=== PATIENT | male | born 1980 | race Two or more races ===

== ENCOUNTER 2021-07-04 01:09 | Inpatient (IN) | payer MEDICAID ==
[~2021-07-04] VITALS: Ht 172.7 cm; Wt 148.3 kg
--- NOTE | 2021-07-04 04:51 | NUR ---
PATIENT ARRIVED ON THE FLOOR FROM [facility]. PATIENT IS AWAKE, A/O X4. NO S/S OF DISTRESS NOTED. NO COMPLAIN OF PAIN. HOB ELEVATED. ON O2 AT 6L NASAL CANNULA O2 SAT 94%. CALL LIGHT WITHIN REACH. BED ALARM ON. BED IN LOWEST AND LOCKED POSITION. AT THE BEDSIDE.URINAL AT THE BEDSIDE.
[2021-07-04 05:30] VITALS: BP 121/74
--- NOTE | 2021-07-04 05:55 | NUR ---
CALLED [facility] FOR DR MARTINEZ FOR ADMISSION ORDERS.
--- NOTE | 2021-07-04 06:50 | NUR ---
DR MARTINEZ CALLED BACK AND INFORMED HIM OF DIRECT ADMIT PATIENT FROM [facility], AND FOR ADMISSION ORDERS. ACCORDING TO HIM DAY TEAM WILL ORDER IT.
[2021-07-04 07:12] VITALS: BP 121/74
[2021-07-04] MEDS ORDERED: ONDANSETRON HCL/PF 4 MG/2 ML VIAL IVP PRN (07:30)
[2021-07-04] MEDS ORDERED: MAG HYDROX/AL HYDROX/SIMETH 30 ML UDC PO PRN (07:30)
[2021-07-04] MEDS ORDERED: ZOLPIDEM TARTRATE 5 MG TABLET PO PRN (07:30)
[2021-07-04] MEDS ORDERED: MAGNESIUM HYDROXIDE 30 ML UDC PO PRN (07:30)
--- NOTE | 2021-07-04 07:30 | NUR ---
RN OPENING NOTES RECEIVED PATIENT IN BED, ASLEEP, EASILY AROUSED. A/O X4, VERBALLY RESPONSIVE. NO SIGNS OF ACUTE DISTRESS NOTED. ON O2 @ 6LPM VIA N/C, SATURATION @92%, NO SOB NOTED, BREATHING EVEN AND UNLABORED. ON MOBILE LOUNGE DRIVER SHOWING NORMAL SINUS RHYTHM, HR @74. NOTED WITH IV ACCESS ON LEFT FOREARM #20G, INTACT AND PATENT, SALINE LOCKED. SAFETY MEASURES IN PLACE. PLACED BED IN LOWEST AND LOCKED POSITION, SR UP X2, CALL LIGHT PLACED WITHIN EASY REACH. WILL CONTINUE TO MONITOR.
[2021-07-04] MEDS: AZITHROMYCIN 250 MG TABLET PO SCH (07:55)
[2021-07-04] MEDS: CEFTRIAXONE 1 G in IV D5W 50 ML IV SCH (07:57)
[2021-07-04 08:00] VITALS: BP 118/69
[2021-07-04 08:19] LABS: BASOPHILS % (AUTO) 0.4 % (0.0-2.0); EOSINOPHILS % (AUTO) 0.4 % (0.0-6.0); HEMATOCRIT 58 % (39-51); HEMOGLOBIN 16.5 g/dL (13.5-17.5); LYMPHOCYTES # (AUTO) 0.9 K/uL (0.8-4.8); LYMPHOCYTES % (AUTO) 9.4 % (20.0-44.0); MEAN CORPUSCULAR HGB CONC 29 g/dl (31.0-36.0); MEAN CORPUSCULAR VOLUME 78 fL (80-96); MONOCYTES # (AUTO) 0.9 K/uL (0.1-1.30); MONOCYTES % (AUTO) 10.4 % (2.0-12.0); NEUTROPHILS # (AUTO) 7.2 K/uL (1.8-8.9); NEUTROPHILS % (AUTO) 79.4 % (43.0-81.0); PLATELET COUNT (AUTO) 131 K/uL (150-450); RED BLOOD CELL COUNT(AUTO) 7.39 MIL/uL (4.5-6.0); WHITE BLOOD COUNT (AUTO) 9.1 K/uL (4.3-11.0)
[2021-07-04 08:38] LABS: CALCIUM, SERUM 8.4 mg/dL (8.5-10.1); CREATININE 1.1 mg/dL (0.6-1.3); MAGNESIUM 2.6 mg/dL (1.8-2.4); PHOSPHORUS 6.3 mg/dL (2.5-4.9); POTASSIUM 5.1 mmol/L (3.5-5.1)
[2021-07-04] MEDS ORDERED: Z GUARD REMEDY 4 OZ OINT TP PRN (09:00)
[2021-07-04] MEDS: ACETAMINOPHEN 325 MG TABLET PO PRN (10:30)
[2021-07-04 12:00] VITALS: BP 115/71
[2021-07-04] MEDS: FUROSEMIDE 40 MG/4 ML VIAL IV SCH (15:08)
[2021-07-04 16:00] VITALS: BP 110/71
--- NOTE | 2021-07-04 18:48 | NUR ---
RN CLOSING NOTES PATIENT IN BED, AWAKE. GIRLFRIEND AT BEDSIDE. A/O X4, VERBALLY RESPONSIVE. NO SIGNS OF ACUTE DISTRESS NOTED. REMAINS ON O2 @ 6LPM VIA N/C, SATURATION @93%, NO SOB NOTED, BREATHING EVEN AND UNLABORED. ON TELE MONITOR SHOWING NORMAL SINUS RHYTHM, HR @80. NOTED WITH IV ACCESS ON LEFT FOREARM #20G, INTACT AND PATENT, SALINE LOCKED. SAFETY MEASURES IN PLACE. PLACED BED IN LOWEST AND LOCKED POSITION, SR UP X2, CALL LIGHT PLACED WITHIN EASY REACH. WILL ENDORSE TO NEXT SHIFT FOR VARSHA.
[2021-07-04 20:00] VITALS: BP 101/65
--- NOTE | 2021-07-04 20:00 | NUR ---
DATA COORDINATOR OPENING NOTES RECEIVED PATIENT STANDING UP, GIRLFRIEND AT BEDSIDE. A/O X4. NO SOB OR NOTED AT THIS TIME. ON O2 @ 6 LPM VIA NC. ON TELE MONITOR SHOWING SINUS RHYTHM 80. NO C/O PAIN OR DISCOMFORT. HAS LEFT FOREARM IV ACCESS #20G AND SALINE LOCKED. SAFETY MEASURES IN PLACE. WILL CONTINUE PLAN OF CARE.
[2021-07-05] VITALS: BP 113/59
[2021-07-05] MEDS: ACETAMINOPHEN 325 MG TABLET PO PRN (00:46)
--- NOTE | 2021-07-05 00:46 | NUR ---
FIRE DEPARTMENT MARINE ENGINEER NOTES PATIENT C/O HEADACHE. PRN TYLENOL ADMINISTERED.
[2021-07-05 04:19] VITALS: BP 115/66
--- NOTE | 2021-07-05 06:15 | NUR ---
CAFETERIA ASSOCIATE CLOSING NOTES PATIENT LYING IN BED ASLEEP, HOB ELEVATED @ 45 DEGREES. EASY TO AROUSE. A/O X4. BREATHING EVEN AND UNLABORED. ON O2 @ 6 LPM VIA NC, SPO2 97%. NO C/O PAIN AT THIS TIME. SKIN WARM AND DRY. ABDOMEN SOFT AND NON-TENDER. ON TELE MONITOR READING SINUS RHYTHM AT 76 BPM. HAS LEFT FOREARM IV ACCESS #20G AND SALINE LOCKED. INTACT, PATENT AND FLUSHING. RIGHT LOWER LEG NON-PITTING EDEMA AND REDNESS NOTED. ALL NEEDS ATTENDED. KEPT DRY AND COMFORTABLE. SAFETY PRECAUTIONS IN PLACE: BED LOW AND LOCKED, SIDE RAILS UP X2, CALL LIGHT WITHIN REACH.
[2021-07-05 06:47] LABS: CHOLESTEROL 114 mg/dL (<200); HDL CHOLESTEROL 22 mg/dL (40-60); LDL 75 mg/dL (0-99); TRIGLYCERIDES 121 mg/dL (30-150)
[2021-07-05 06:52] LABS: ALANINE AMINOTRANSFERASE < 6 U/L (12-78); ALBUMIN 2.7 g/dL (3.4-5.0); ALKALINE PHOSPHATASE 86 U/L (46-116); ASPARTATE AMINOTRANSFERASE 11 U/L (15-37); BILIRUBIN,TOTAL 0.5 mg/dL (0.2-1.0); CALCIUM, SERUM 8.7 mg/dL (8.5-10.1); CHLORIDE 101 mmol/L (98-107); CREATININE 0.9 mg/dL (0.6-1.3); GLUCOSE 201 mg/dL (74-106); MAGNESIUM 2.4 mg/dL (1.8-2.4); PHOSPHORUS 4.8 mg/dL (2.5-4.9); POTASSIUM 5.1 mmol/L (3.5-5.1); SODIUM SERUM 140 mmol/L (136-145); TOTAL PROTEIN, SERUM 7.7 g/dL (6.4-8.2); UREA NITROGEN, BLOOD 16 mg/dL (7-18)
[2021-07-05 06:57] LABS: CARBON DIOXIDE 41 mmol/L (21-32)
[2021-07-05] MEDS: AZITHROMYCIN 250 MG TABLET PO SCH (07:24)
--- NOTE | 2021-07-05 07:30 | NUR ---
DAY CARE TEACHER OPENING NOTES RECEIVED PATIENT on bed awake. A/O X4. ABLE TO MAKE NEEDS KNOWN. NO SOB OR NOTED AT THIS TIME. ON O2 @ 6 LPM VIA NC. O2 SAT NOTED 97%. ON TELE MONITOR SHOWING SINUS RHYTHM . NO C/O PAIN OR DISCOMFORT NOTED. LEFT FOREARM IV ACCESS #20G AND SALINE LOCKED. SAFETY MEASURES IN PLACE. BED LOCKED IN THE LOWEST POSITION. CALL LIGHT AND TABLE IN REACH. WILL CONTINUE TO MONITOR.
[2021-07-05 07:39] LABS: BASOPHILS # (AUTO) 0.1 K/uL (0.0-0.2); BASOPHILS % (AUTO) 0.9 % (0.0-2.0); EOSINOPHILS % (AUTO) 1.4 % (0.0-6.0); HEMATOCRIT 57 % (39-51); HEMOGLOBIN 16.1 g/dL (13.5-17.5); LYMPHOCYTES # (AUTO) 0.9 K/uL (0.8-4.8); LYMPHOCYTES % (AUTO) 13.5 % (20.0-44.0); MEAN CORPUSCULAR HGB CONC 28 g/dl (31.0-36.0); MEAN CORPUSCULAR VOLUME 79 fL (80-96); MONOCYTES # (AUTO) 0.5 K/uL (0.1-1.30); MONOCYTES % (AUTO) 7.5 % (2.0-12.0); NEUTROPHILS # (AUTO) 5.2 K/uL (1.8-8.9); NEUTROPHILS % (AUTO) 76.7 % (43.0-81.0); PLATELET COUNT (AUTO) 118 K/uL (150-450); RED BLOOD CELL COUNT(AUTO) 7.23 MIL/uL (4.5-6.0); WHITE BLOOD COUNT (AUTO) 6.7 K/uL (4.3-11.0)
[2021-07-05] MEDS: CEFTRIAXONE 1 G in IV D5W 50 ML IV SCH (08:05)
[2021-07-05] MEDS: FUROSEMIDE 40 MG/4 ML VIAL IV SCH ×2 (08:49→16:17)
[2021-07-05] MEDS ORDERED: FURO-144 PO (12:03)
[2021-07-05] MEDS ORDERED: METO25TA3 PO (12:03)
[2021-07-05] MEDS ORDERED: ASPI-1420 PO (12:03)
[2021-07-05 14:07] LABS: ABG BASE EXCESS 11.6 mmol/L; ABG OXYGEN SATURATION 92.4 % (92.0-98.5); ABG PCO2 84.2 mmHg (35.0-45.0); ABG PH 7.322 (7.350-7.450); ABG PO2 64.4 mmHg (75.0-100.0); COHb 1.8 % (0.5-1.5); MetHb 0.5 % (0.0-1.5); O2Hb 90.3 % (94.0-97.0); SITE, ABG Right Radial; VENT MODE, BG 6LPM NC
--- NOTE | 2021-07-05 18:40 | NUR ---
GLOVE PAIRER CLOSING NOTES PATIENT ON BIPAB AWAKE. A/O X4. ABLE TO MAKE NEEDS KNOWN. NO SOB AT THIS TIME. O2 SAT NOTED 97%. ON TELE MONITOR SHOWING SINUS RHYTHM . NO C/O PAIN OR DISCOMFORT NOTED. LEFT FOREARM IV ACCESS #20G AND SALINE LOCKED. ALL DUE MEDS GIVEN ORDERED. SISTERS AT HER BED SIDE.SAFETY MEASURES IN PLACE. BED LOCKED IN THE LOWEST POSITION. CALL LIGHT AND TABLE IN REACH. WILL ENDORSE FOR VARSHA..
--- NOTE | 2021-07-05 19:15 | NUR ---
RT NOTE ABG DRAWN. RAN, AND VALUES GIVEN TO RN. WILL CONTINUE TO MONITOR T/OS SHIFT.
[2021-07-05 19:26] LABS: ABG BASE EXCESS 10.2 mmol/L; ABG OXYGEN SATURATION 95.6 % (92.0-98.5); ABG PCO2 69.6 mmHg (35.0-45.0); ABG PO2 76.6 mmHg (75.0-100.0); AaDO2 128.6 mmHg; COHb 1.9 % (0.5-1.5); MetHb 0.5 % (0.0-1.5); O2Hb 93.3 % (94.0-97.0); SITE, ABG Right Radial; VENT MODE, BG BIPAP 20/5 R20 40%
--- NOTE | 2021-07-05 19:41 | NUR ---
RESOURCE DEVELOPMENT DIRECTOR OPENING NOTES PATIENT ON BIPAB AWAKE. A/O X4. ABLE TO MAKE NEEDS KNOWN. NO SOB AT THIS TIME. O2 SAT NOTED 97%. ON TELE MONITOR SHOWING SINUS RHYTHM . NO C/O PAIN OR DISCOMFORT NOTED. LEFT FOREARM IV ACCESS #20G AND SALINE LOCKED. SISTERS AT HIS BED SIDE.SAFETY MEASURES IN PLACE. BED LOCKED IN THE LOWEST POSITION. CALL LIGHT AND TABLE IN REACH.
--- NOTE | 2021-07-05 19:46 | NUR ---
SUPERVISOR INDUSTRIAL GARMENT NOTES CRITICAL BLOOD GAS LEVELS REPORTED TO DR GUTIERREZ PER DR PANCHAL CONTINUE ON CURRENT BIPAP LEVELS OVERNIGHT OKAY TO STAY IN 3 WARREN.
[2021-07-05 20:09] VITALS: BP 112/58
[2021-07-05 23:53] VITALS: BP 107/65
--- NOTE | 2021-07-06 03:29 | NUR ---
INFANT CHILDCARE PROVIDER NOTES PT NOT COMPLIANT WITH BIPAP THROUGHOUT THE NIGHT PT HAS CONTINUED TO TAKE THE MASK OFF DESPITE RISK AND BENEFITS EXPLAINED BY RN. PT JUST KEEPS SAYING " I DON'T WANT IT ANYMORE ITS UNCOMFORTABLE" BUT HAS PUT IT BACK ON AT THIS TIME AFTER INSISTING AND EXPLANATION MULTIPLE TIMES. WILL CONTINUE TO MONITOR.
--- NOTE | 2021-07-06 03:36 | NUR ---
RT NOTE PT KEEPS REMOVING BIPAP, STATES HE DOESN'T WANT IT. INFORMED PT THAT SPO2 DROPS BELOW 90%. PT THEN ACCEPTS/ ALLOWS FOR BIPAP TO BE PLACED BACK. PT ALSO REMOVED SPO2 SENSOR MULTIPLE TIMES. BEING NON-COMPLAINT T/O NIGHT. RN AWARE. WILL CONTINUE TO MONITOR T/O SHIFT.
[2021-07-06 03:58] VITALS: BP 117/76
--- NOTE | 2021-07-06 06:31 | NUR ---
SORT WORKER CLOSING NOTES PATIENT ON BIPAB AWAKE. A/O X4. ABLE TO MAKE NEEDS KNOWN. NO SOB AT THIS TIME. O2 SAT NOTED 97%. ON TELE MONITOR SHOWING SINUS RHYTHM . NO C/O PAIN OR DISCOMFORT NOTED. LEFT FOREARM IV ACCESS #20G AND SALINE LOCKED.SAFETY MEASURES IN PLACE. BED LOCKED IN THE LOWEST POSITION. CALL LIGHT AND TABLE IN REACH. WILL ENODRSE CRAE TO DAY SHIFT NURSE.
--- NOTE | 2021-07-06 07:26 | NUR ---
MILLINERY DESIGNER OPENING NOTES PATIENT RECEIVED AWAKE IN BED IN NO ACUTE SIGNS OF DISTRESS. HOB ELEVATED. A/O X4. ABLE TO MAKE NEEDS KNOWN, NO C/O PAIN OR SOB AT THIS TIME. ON BIPAB @ PRESCRIBED SETTINGS, TOLERATING WELL, O2 SAT NOTED 97% AT THIS TIME. ON TELE-MONITOR SHOWING SINUS RHYTHM, HR ON THE 70'S. IV ACCESS ON LEFT FOREARM #20G INTACT AND SALINE LOCKED. SAFETY MEASURES IN PLACED: BED IN LOWEST LOCKED POSITION, SIDE-RAILS UP X2 AND CALL LIGHT W/I REACH. WILL CONTINUE TO MONITOR PT.
[2021-07-06 08:16] VITALS: BP 126/71
[2021-07-06] MEDS: CEFTRIAXONE 1 G in IV D5W 50 ML IV SCH (08:23)
[2021-07-06] MEDS: AZITHROMYCIN 250 MG TABLET PO SCH (08:31)
[2021-07-06] MEDS: FUROSEMIDE 40 MG/4 ML VIAL IV SCH (08:37)
[2021-07-06 10:07] LABS: ABG BASE EXCESS 14.6 mmol/L; ABG OXYGEN SATURATION 92.9 % (92.0-98.5); ABG PCO2 68.9 mmHg (35.0-45.0); ABG PH 7.419 (7.350-7.450); ABG PO2 63.4 mmHg (75.0-100.0); AaDO2 113.4 mmHg; COHb 1.9 % (0.5-1.5); MetHb 0.4 % (0.0-1.5); O2Hb 90.8 % (94.0-97.0); SITE, ABG Right Radial
--- NOTE | 2021-07-06 10:39 | NUR ---
RN NOTES PT SEEN BY DR. MENDOSA WITH ORDERS TO APPLY BIPAP AT NIGHT AND NASAL CANNULA DURING THE DAY AT 6L/MIN, MAY TITRATE TO MAINTAIN SPO2 AT > 88%. PT SPO2 AT THIS TIME RANGES FROM 92%-95% ON O2 VIA NASAL CANNULA AT 6L/MIN
[2021-07-06 12:17] VITALS: BP 125/73
--- NOTE | 2021-07-06 14:52 | NUR ---
RN NOTES PT C/O OF RUNNING NOSE AND TEARY EYES, REPORTED TO DR PANCHAL WITH ORDER TO GIVE CLARITIN 10MG PO ONCE A DAY PRN.
[2021-07-06] MEDS ORDERED: LORATADINE 10 MG TABLET PO PRN (15:00)
[2021-07-06 15:53] VITALS: BP 106/69
--- NOTE | 2021-07-06 18:43 | NUR ---
DETECTIVE PRIVATE EYE CLOSING NOTES PATIENT IN BED AWAKE WITH FAMILY AT BEDSIDE. HOB ELEVATED. A/O X4. ABLE TO MAKE NEEDS KNOWN. ON 02 VIA N/C AT 6LPM AT THIS TIME, TOLERATING WELL, NO ACUTE RESPIRATORY DISTRESS NOTED. ON TELE-MONITOR WITH CURRENT READING OF NSR, HR ON THE 70'S, NO C/O CARDIAC DISTRESS VOICED. IV ACCESS ON LFA #20G INTACT, PATENT AND SALINE LOCKED. ALL NEEDS AND CARE ATTENDED WELL. SAFETY MEASURES IN PLACED: BED IN LOWEST LOCKED POSITION, SIDE-RAILS UP X2 AND CALL LIGHT W/I EASY REACH OF PT. WILL ENDORSE VARSHA TO CABLE REPAIRER NURSE.
--- NOTE | 2021-07-06 19:20 | NUR ---
TRENCH DIGGER HELPER OPENING NOTES: RECEIVED PATIENT IN BED, AWAKE. A/O X4. NO S/S OF DISTRESS NOTED. NO COMPLAIN OF PAIN. CALL LIGHT WITHIN REACH. BED IN LOWEST AND LOCKED POSITION. HOB ELEVATED. WITH O2 AT 6L. WITH FAMILY MEMBERS AT THE BEDSIDE. ON TELE MONITOR WITH SINUS 85.
[2021-07-06 20:00] VITALS: BP 106/64
[2021-07-07] VITALS: BP 97/60
[2021-07-07 04:00] VITALS: BP 121/79
[2021-07-07 06:17] LABS: ALANINE AMINOTRANSFERASE < 6 U/L (12-78); ALBUMIN 2.8 g/dL (3.4-5.0); ALKALINE PHOSPHATASE 89 U/L (46-116); ASPARTATE AMINOTRANSFERASE 19 U/L (15-37); BILIRUBIN,TOTAL 0.8 mg/dL (0.2-1.0); CALCIUM, SERUM 9.1 mg/dL (8.5-10.1); CARBON DIOXIDE 38 mmol/L (21-32); CHLORIDE 97 mmol/L (98-107); CREATININE 0.8 mg/dL (0.6-1.3); GLUCOSE 134 mg/dL (74-106); MAGNESIUM 2.1 mg/dL (1.8-2.4); POTASSIUM 3.9 mmol/L (3.5-5.1); SODIUM SERUM 139 mmol/L (136-145); TOTAL PROTEIN, SERUM 7.7 g/dL (6.4-8.2); UREA NITROGEN, BLOOD 21 mg/dL (7-18)
[2021-07-07 06:44] LABS: BASOPHILS % (AUTO) 0.2 % (0.0-2.0); EOSINOPHILS % (AUTO) 2.4 % (0.0-6.0); HEMATOCRIT 59 % (39-51); HEMOGLOBIN 17.1 g/dL (13.5-17.5); LYMPHOCYTES # (AUTO) 1.3 K/uL (0.8-4.8); LYMPHOCYTES % (AUTO) 21.4 % (20.0-44.0); MEAN CORPUSCULAR HGB CONC 29 g/dl (31.0-36.0); MEAN CORPUSCULAR VOLUME 76 fL (80-96); MONOCYTES # (AUTO) 0.5 K/uL (0.1-1.30); MONOCYTES % (AUTO) 8.1 % (2.0-12.0); NEUTROPHILS # (AUTO) 4.2 K/uL (1.8-8.9); NEUTROPHILS % (AUTO) 67.9 % (43.0-81.0); PLATELET COUNT (AUTO) 141 K/uL (150-450); RED BLOOD CELL COUNT(AUTO) 7.68 MIL/uL (4.5-6.0); WHITE BLOOD COUNT (AUTO) 6.1 K/uL (4.3-11.0)
--- NOTE | 2021-07-07 07:45 | NUR ---
PT. IS AWAKE AND ALERT PLACED INTO 3 LPM O2 FLOW VIA NASAL CANNULA WITH SPO2 93%. Addendum: 07/07/21 at 0746 by JACQUELINE MEDINA RT Amended: Links added.
--- NOTE | 2021-07-07 07:50 | NUR ---
TELE/RN OPENING NOTES: RECEIVED PATIENT IN BED, ALERT AND ORIENTED X4, ABLE TO MAKE NEEDS KNOWN. ON 6L/MIN OF OXYGEN VIA NASAL CANNULA SATURATING AT 96% AT THIS TIME, ON CONTINUOUS O2 MONITORING. NO COMPLAINTS OF PAIN AND DISCOMFORTS. IV ACCESS ON LEFT FA #20G IN SALINE LOCK. SAFETY MEASURES IN PLACED: BED LOCKED ON LOWEST POSITION, SIDE RAILS UPX2, CALL LIGHT WITHIN EASY REACH. WILL CONTINUE WITH THE PLAN OF CARE.
[2021-07-07] MEDS: AZITHROMYCIN 250 MG TABLET PO SCH (08:26)
[2021-07-07] MEDS: CEFTRIAXONE 1 G in IV D5W 50 ML IV SCH (08:26)
[2021-07-07 11:21] LABS: ABG BASE EXCESS 12.6 mmol/L; ABG PCO2 61.3 mmHg (35.0-45.0); ABG PH 7.437 (7.350-7.450); ABG PO2 60.5 mmHg (75.0-100.0); AaDO2 103.2 mmHg; COHb 1.6 % (0.5-1.5); MetHb 0.4 % (0.0-1.5); O2Hb 89.2 % (94.0-97.0); SITE, ABG Right Brachial; VENT MODE, BG nasal cannula
--- NOTE | 2021-07-07 11:24 | NUR ---
WOUND CARE CONSULT: PT PRESENTS WITH REDNESS TO RT LOWER LEG, PRESENT ON ADMISSION. DR GRAVES NOTIFIED OF DPM CONSULT. DISCUSSED WITH DR SPRINGER. IN AGREEMENT WITH PLAN OF CARE.
--- NOTE | 2021-07-07 19:26 | NUR ---
DIGITAL ACCOUNT EXECUTIVE OPENING NOTES RECEIVED PATIENT IN BED, A/O X4, ABLE TO MAKE NEEDS KNOWN. ON 2 LPM OF OXYGEN VIA NASAL CANNULA ON CONTINUOUS O2 MONITORING. NO SOB OR S/S OF RESPIRATORY DISTRESS AT THIS TIME. NO COMPLAINTS OF PAIN OR DISCOMFORT AT THIS TIME. IV ACCESS ON LFA 22 GAUGE SL, INTACT AND PATENT. SAFETY PRECAUTIONS IN PLACE. BED IN LOWEST LOCKED POSITION, HOB ELEVATED, SIDE RAILS UP X2, AND CALL LIGHT AND TABLE WITHIN REACH. PT STATED ALL NEEDS MET AT THIS TIME.
[2021-07-07 20:00] VITALS: BP 102/59
[2021-07-08] VITALS: BP 114/61
[2021-07-08 05:17] VITALS: BP 106/66
[2021-07-08 06:42] LABS: BASOPHILS % (AUTO) 0.3 % (0.0-2.0); EOSINOPHILS % (AUTO) 3.5 % (0.0-6.0); HEMATOCRIT 57 % (39-51); HEMOGLOBIN 16.5 g/dL (13.5-17.5); LYMPHOCYTES # (AUTO) 1.7 K/uL (0.8-4.8); LYMPHOCYTES % (AUTO) 25.1 % (20.0-44.0); MEAN CORPUSCULAR HGB CONC 29 g/dl (31.0-36.0); MEAN CORPUSCULAR VOLUME 77 fL (80-96); MONOCYTES # (AUTO) 0.5 K/uL (0.1-1.30); MONOCYTES % (AUTO) 7.5 % (2.0-12.0); NEUTROPHILS # (AUTO) 4.2 K/uL (1.8-8.9); NEUTROPHILS % (AUTO) 63.6 % (43.0-81.0); PLATELET COUNT (AUTO) 143 K/uL (150-450); WHITE BLOOD COUNT (AUTO) 6.6 K/uL (4.3-11.0)
--- NOTE | 2021-07-08 06:45 | NUR ---
WOOD BOAT BUILDER SUPERVISOR CLOSING NOTES PATIENT AWAKE IN BED, A/O X4, ABLE TO MAKE NEEDS KNOWN. ON 2 LPM OF OXYGEN VIA NASAL CANNULA ON CONTINUOUS O2 MONITORING. NO SOB OR S/S OF RESPIRATORY DISTRESS AT THIS TIME. NO COMPLAINTS OF PAIN OR DISCOMFORT AT THIS TIME. IV ACCESS ON LFA 22 GAUGE SL, INTACT AND PATENT. SAFETY PRECAUTIONS IN PLACE. BED IN LOWEST LOCKED POSITION, HOB ELEVATED, SIDE RAILS UP X2, AND CALL LIGHT AND TABLE WITHIN REACH. PT STATED ALL NEEDS MET AT THIS TIME. WILL ENDORSE TO ONCOMING NURSE FOR VARSHA.
--- NOTE | 2021-07-08 07:38 | NUR ---
RN OPENING NOTE PT IN BED, A/O X4, ABLE TO MAKE NEEDS KNOWN. ON 2 LPM OF OXYGEN VIA NASAL CANNULA ON CONTINUOUS O2 MONITORING. NO SOB OR S/S OF RESPIRATORY DISTRESS AT THIS TIME. DENIES PAIN. IV ACCESS ON LFA 22 GAUGE . SAFETY PRECAUTIONS IN PLACE. BED IN LOWEST LOCKED POSITION, HOB ELEVATED, SIDE RAILS UP X2, AND CALL LIGHT AND TABLE WITHIN REACH. MONITOR / ASSIST
[2021-07-08] MEDS: AZITHROMYCIN 250 MG TABLET PO SCH (07:59)
[2021-07-08 08:00] VITALS: BP 114/63
[2021-07-08] MEDS: CEFTRIAXONE 1 G in IV D5W 50 ML IV SCH (08:01)
[2021-07-08 08:16] LABS: CALCIUM, SERUM 8.8 mg/dL (8.5-10.1); CREATININE 0.8 mg/dL (0.6-1.3); MAGNESIUM 2.5 mg/dL (1.8-2.4); PHOSPHORUS 4.5 mg/dL (2.5-4.9)
[2021-07-08 16:00] VITALS: BP 104/72
--- NOTE | 2021-07-08 18:38 | NUR ---
RN CLOSING NOTE PT IN BED, A/O X4, ABLE TO MAKE NEEDS KNOWN. ON 2 LPM OF OXYGEN VIA NASAL CANNULA ON CONTINUOUS O2 MONITORING. NO SOB OR S/S OF RESPIRATORY DISTRESS AT THIS TIME. DENIES PAIN. IV ACCESS ON LFA 22 GAUGE . POSS DC SOON. BIPAP NEEDED FOR HOME. SAFETY PRECAUTIONS IN PLACE. BED IN LOWEST LOCKED POSITION, HOB ELEVATED, SIDE RAILS UP X2, AND CALL LIGHT AND TABLE WITHIN REACH. MONITOR / ASSIST
[2021-07-08 20:00] VITALS: BP 110/64
[2021-07-08 20:21] VITALS: BP 110/64
[2021-07-09 04:00] VITALS: BP 133/83
[2021-07-09 05:00] VITALS: BP 133/83
[2021-07-09 06:17] LABS: CALCIUM, SERUM 9.1 mg/dL (8.5-10.1); CREATININE 0.9 mg/dL (0.6-1.3); MAGNESIUM 2.5 mg/dL (1.8-2.4); PHOSPHORUS 4.3 mg/dL (2.5-4.9); POTASSIUM 4.5 mmol/L (3.5-5.1)
[2021-07-09 06:31] LABS: BASOPHILS % (AUTO) 0.4 % (0.0-2.0); EOSINOPHILS % (AUTO) 3.1 % (0.0-6.0); HEMATOCRIT 56 % (39-51); HEMOGLOBIN 16.4 g/dL (13.5-17.5); LYMPHOCYTES # (AUTO) 1.5 K/uL (0.8-4.8); LYMPHOCYTES % (AUTO) 21.2 % (20.0-44.0); MEAN CORPUSCULAR HGB CONC 29 g/dl (31.0-36.0); MEAN CORPUSCULAR VOLUME 76 fL (80-96); MONOCYTES # (AUTO) 0.4 K/uL (0.1-1.30); MONOCYTES % (AUTO) 6.1 % (2.0-12.0); NEUTROPHILS % (AUTO) 69.2 % (43.0-81.0); PLATELET COUNT (AUTO) 159 K/uL (150-450); RED BLOOD CELL COUNT(AUTO) 7.35 MIL/uL (4.5-6.0); WHITE BLOOD COUNT (AUTO) 7.2 K/uL (4.3-11.0)
--- NOTE | 2021-07-09 06:35 | NUR ---
ENDING NOTES: ALERT AND ORIENTATED X4 WORE THE BIPAP THRU THE NIGHT 02 SATS THIS AM 94% 02 3LITERS SLEPT IN SEMI FOWERS POSITION
--- NOTE | 2021-07-09 07:29 | NUR ---
MANUFACTURING CHIEF ENGINEER OPENING NOTES PATIENT IN BED AWAKE. A/O X4. ABLE TO MAKE NEEDS KNOWN. ON O2 AT 3L/MIN VIA NASAL CANNULA, TOLERATING WELL WITH O2 SAT AT 97% AT THIS NOT IN ANY SIGN OF RESPIRATORY DISTRESS. ON TELE-MONITOR SHOWING SINUS RHYTHM WITH HR OF 82. IV ACCESS ON LEFT FOREARM G #22 SALINE LOCK, INTACT, PATENT, AND FLUSHING WELL. SAFETY MEASURES IN PLACED: BED IN LOWEST LOCKED POSITION, SIDE-RAILS UP X2 AND CALL LIGHT W/I REACH. WILL CONTINUE TO MONITOR AND WITH PLAN OF CARE.
[2021-07-09 08:00] VITALS: BP 100/64
[2021-07-09] MEDS: ASPIRIN EC 81 MG TABLET.DR PO SCH (08:39)
[2021-07-09] MEDS: FUROSEMIDE 40 MG TABLET PO SCH (08:39)
[2021-07-09] MEDS: METOPROLOL SUCCINATE 25 MG TAB.SR.24H PO SCH (08:39)
[2021-07-09] MEDS: CEFTRIAXONE 1 G in IV D5W 50 ML IV SCH (09:00)
--- NOTE | 2021-07-09 10:00 | NUR ---
RN NOTES PT'S O2 WAS DECREASED FROM 3LITERS TO 2L/MIN VIA NASAL CANNULA. PT ABLE TO TOLERATE WELL WITH NO SIGN OF RESPIRATORY DISTRESS. WILL CONTINUE TO MONITOR.
[2021-07-09 12:00] VITALS: BP 109/66
[2021-07-09 16:00] VITALS: BP 108/57
--- NOTE | 2021-07-09 18:40 | NUR ---
FINANCIAL INVESTMENT ADVISER CLOSING NOTES PATIENT IN BED WATCHING TV. A/O X4. ABLE TO MAKE NEEDS KNOWN. ON O2 AT 2L/MIN VIA NASAL CANNULA, TOLERATING WELL WITH O2 SAT AT 95% AT THIS TIME. NOT IN ANY SIGN OF RESPIRATORY DISTRESS. ON TELE-MONITOR SHOWS FIRST DEGREE HB WITH HR 70s-80s. NO COMPLAINS OF CARDIAC DISCOMFORT OR DISTRESS. IV ACCESS ON LEFT FOREARM G #22 SALINE LOCK, INTACT, PATENT, AND FLUSHING WELL. ALL NEEDS AND CARE PROVIDED. ENCOURAGED PT TO TURN AND REPOSITIONED Q2HRS AND NEEDED TO PREVENT PRESSURE SORES. SAFETY MEASURES IN PLACED: BED IN LOWEST LOCKED POSITION, SIDE-RAILS UP X2 AND CALL LIGHT W/I REACH. WILL ENDORSE TO ELECTRONICS TECH.
--- NOTE | 2021-07-09 19:41 | NUR ---
CHIEF OPERATOR LOCK TENDER OPENING NOTE PATIENT RECEIVED AWAKE IN BED. A/OX4. NO S/S OF DISTRESS, BREATHING BY NC 1.5L W/O DIFFICULTY. LFA #22 SL INTACT AND PATENT. TELE MONITOR REVEALS ST 76. SAFETY MEASURES IN PLACE: BE AT LOWEST POSITION, RAILS UP X3, CALL LIGHT WITHIN REACH. WILL CONTINUE TO MONITOR PATIENT.
[2021-07-09 20:00] VITALS: BP 105/60
[2021-07-10] VITALS: BP 95/43
[2021-07-10 04:37] VITALS: BP 107/66
[2021-07-10 06:21] LABS: HEMATOCRIT 58 % (39-51); LYMPHOCYTES # (AUTO) 1.7 K/uL (0.8-4.8); MONOCYTES # (AUTO) 0.5 K/uL (0.1-1.30); NEUTROPHILS % (AUTO) 70.6 % (43.0-81.0)
[2021-07-10 06:57] LABS: CREATININE 0.9 mg/dL (0.6-1.3); MAGNESIUM 2.7 mg/dL (1.8-2.4); PHOSPHORUS 5.4 mg/dL (2.5-4.9); POTASSIUM 4.7 mmol/L (3.5-5.1)
[2021-07-10 07:08] LABS: BASOPHILS # (AUTO) 0.1 K/uL (0.0-0.2); BASOPHILS % (AUTO) 0.7 % (0.0-2.0); CALCIUM, SERUM 8.9 mg/dL (8.5-10.1); EOSINOPHILS % (AUTO) 3.1 % (0.0-6.0); LYMPHOCYTES % (AUTO) 19.9 % (20.0-44.0); MEAN CORPUSCULAR HGB CONC 30 g/dl (31.0-36.0); MEAN CORPUSCULAR VOLUME 76 fL (80-96); MONOCYTES % (AUTO) 5.7 % (2.0-12.0); PLATELET COUNT (AUTO) 177 K/uL (150-450); RED BLOOD CELL COUNT(AUTO) 7.59 MIL/uL (4.5-6.0); WHITE BLOOD COUNT (AUTO) 8.5 K/uL (4.3-11.0)
[2021-07-10 07:56] VITALS: BP 114/63
[2021-07-10] MEDS: FUROSEMIDE 40 MG TABLET PO SCH (08:44)
[2021-07-10] MEDS: CEFTRIAXONE 1 G in IV D5W 50 ML IV SCH (08:44)
[2021-07-10] MEDS: ASPIRIN EC 81 MG TABLET.DR PO SCH (08:44)
[2021-07-10] MEDS: METOPROLOL SUCCINATE 25 MG TAB.SR.24H PO SCH (08:45)
[2021-07-10 12:15] VITALS: BP 118/72
[2021-07-10] MEDS ORDERED: MINE3.5O OP (13:44)
[2021-07-10] MEDS ORDERED: DOXY-326 PO (13:44)
--- NOTE | 2021-07-10 15:05 | NUR ---
SNAKE CHARMERSAFETY GROOVING MACHINE OPERATOR NOTES PATIENT DISCHARGE HOME WITH STABLE VITAL SIGNS. NO ACUTE DISTRESS NOTED, BREATHING UNLABORED. NO SOB NOTED. ALERT ORIENTED X4. DISCHARGE INSTRUCTIONS GIVEN TO THE PATIENT INCLUDING FOLLOW UP APPOINTMENT, NEW PRESCRIPTION AND CPAP AT HOME, VERBALIZED UNDERSTANDING, IV ACCESS ON LFA #22 REMOVED, NO BLEEDING, NO REDNESS, NO SWELLING NOTED. ALL BELONGINGS ACCOUNTED FOR. SKIN IS INTACT. PICKED UP BY GIRLFRIEND VIA PRIVATE CAR IN STABLE CONDITION. ASSISTED TO THE LOBBY.
== END 2021-07-10 15:05 | disposition home or self-care (01) | DRG 139 ==
LOC: TELE 04:46
PROVIDERS: ATTEND Nurse Practitioner Acute Care
PROC: 5A09357 Assistance with Respiratory Ventilation, Less than 24 Consecutive Hours, Continuous Positive Airway Pressure (ICD-10-PCS; principal; 2021-07-05)
PROC: 5A09357 Assistance with Respiratory Ventilation, Less than 24 Consecutive Hours, Continuous Positive Airway Pressure (ICD-10-PCS; 2021-07-06)
DX: J15.9 Unspecified bacterial pneumonia (principal); J96.21 Acute and chronic respiratory failure with hypoxia; E66.2 Morbid (severe) obesity with alveolar hypoventilation; Z86.16 Personal history of COVID-19; Z68.42 Body mass index [BMI] 45.0-49.9, adult; J96.22 Acute and chronic respiratory failure with hypercapnia; D75.1 Secondary polycythemia; L03.115 Cellulitis of right lower limb; Z87.01 Personal history of pneumonia (recurrent); M79.661 Pain in right lower leg
CPT/HCPCS: 36415; 36600; 71045-TC; 80048-TC; 80053-TC; 80061-TC; 82803-TC; 83735-TC; 84100-TC; 85025-TC; 87081-TC; 93307-TC; 94003-TC; 94660; 94760-TC; 94799-TC; G0378; J0696; J1940; J7050; J7060